=== PATIENT | male | born 1970 | race Caucasian/White ===

== ENCOUNTER 2018-06-04 09:23 | Emergency (ER) | payer BC ==
[2018-06-04 09:31] VITALS: BP 139/89
--- NOTE | 2018-06-04 10:10 | UC ---
Skin Complaint HPI - HPI Summary HPI Summary: 48 y/o male presents to the urgent care c/o a rash in his Rt forearm s/p probably a spider bite or insect bite since night 06/02/2018. Pt states last night it was very swollen that he called 911 and they advised him to come today to the urgent care. Pt reports had back surgery on Wednesday05/31/2018 for a herniated disc and he took Flexeril PO and made him feel very drowsy and dizzy. Pt states pain is dull 2/10. Area is warm to touch. Pt denies fever, but he feels hot at times. Pt denies SOB, difficulty breathing, throat tightening, chest pain, abdominal pain, N/V/D. - History of Current Complaint Chief Complaint: UCSkin Time Seen by Provider: 06/04/18 10:08 Stated Complaint: BUG BITE Hx Obtained From: Patient Pain Intensity: 2 - Allergy/Home Medications Allergies/Adverse Reactions: Allergies Allergy/AdvReac Type Severity Reaction Status Date / Time No Known Allergies Allergy Verified 06/04/18 09:31 Home Medications: Home Medications Hydrocodone/Acetaminophen [Hydrocodone-Acetamin 5-325 mg] 1 tab PO Q6HR PRN [History Confirmed 06/04/18] PMH/Surg Hx/FS Hx/Imm Hx - Surgical History Surgical History: Yes Surgery Procedure, Year, and Place: back surgery fatty tumor removed and hernai - Social History Alcohol Use: Rare Substance Use Type: None Smoking Status (MU): Never Smoked Tobacco Physical Exam - Summary Physical Exam Summary: Vital Signs Reviewed: Yes General: well developed, well nourished male sitting in the examining table w/o any apparent distress. Eyes: Positive: Conjunctiva Clear - PERRLA, EOMI ENT: Positive: Normal ENT inspection, Hearing grossly normal, Pharynx normal, TMs normal Neck: Positive: Supple, Nontender, No Lymphadenopathy Respiratory: Positive: Chest nontender, Lungs clear, Normal breath sounds Cardiovascular: Positive: RRR, No Murmur, Pulses Normal Abdomen Description: Positive: Nontender, No Organomegaly, Soft. Negative: CVA Tenderness (R), CVA Tenderness (L) Bowel Sounds: Positive: Present Musculoskeletal: Positive: Strength Intact, ROM Intact, No Edema Neurological Exam: Normal Psychological Exam: Normal Skin: Positive: rashes - RT ventral side of Rt forearm w/ erythematous patch w/ indistinct borders, warm to touch, swelling and tender to palpation. Triage Information Reviewed: Yes Vital Signs: Initial Vital Signs Temp 98 F 06/04/18 09:27 Pulse 96 06/04/18 09:27 Resp 16 06/04/18 09:27 BP 139/89 06/04/18 09:27 Pulse Ox 100 06/04/18 09:27 Course/Dx - Course Course Of Treatment: 48 y/o male presents to the urgent care c/o a rash in his Rt forearm s/p probably a spider bite or insect bite since night 2017. Pt states last night it was very swollen that he called 911 and they advised him to come today to the urgent care. Pt reports had back surgery on Wednesday05/31/2018 for a herniated disc and he took Flexeril PO and made him feel very drowsy and dizzy. Pt states pain is dull 2/10. Area is warm to touch. Pt denies fever, but he feels hot at times. Pt denies SOB, difficulty breathing , throat tightening, chest pain, abdominal pain, N/V/D. Hx obtained. - Differential Diagnoses - Skin Complaint Differential Diagnoses: Abscess, Cellulitis, Contact Dermatitis, Local Allergic Reaction, MRSA, Tick Born Illness, Other - insect or spider bite - Diagnoses Provider Diagnoses: 1- RT forearm cellulitis s/p insect bite Discharge - Sign-Out/Discharge Documenting (check all that apply): Patient Departure - D/c home All imaging exams completed and their final reports reviewed: No Studies - Discharge Plan Condition: Stable Disposition: HOME Prescriptions: Bacitracin OINTMENT* 1 applic TOPICAL BID #1 tube Cephalexin CAP* [Keflex CAP*] 500 mg PO QID #28 cap diPHENhydraMINE PO* [Benadryl PO 25 MG TAB*] 25 mg PO TID PRN #20 tab PRN Reason: pruritus Patient Education Materials: Cellulitis (ED) Referrals: Jamel Franz MD [Primary Care Provider] - 3 Days Additional Instructions: 1-Please take full course of Antibiotic. Please apply Bacitracin oint as directed. 2- If redness and swelling doubles in size beyond what was demarcated after 48 hrs of taking antibiotic and fever develops please go to the ER immediately. 3- Please Stop taking Flexeril PO since it makes you too drowsy. Please take Benadryl PO as directed to alleviate itchiness. 3-Avoid flexing your Rt arm too much , keep area clean and dry. 4-Please F/u with your PCP in 3 days for further evaluation and treatment. - Billing Disposition and Condition Condition: STABLE Disposition: Home
== END 2018-06-04 10:48 | disposition home or self-care (01) ==
LOC: UCEAST 09:23
DX: L03.113 Cellulitis of right upper limb (principal); S50.861A Insect bite (nonvenomous) of right forearm, initial encounter; W57.XXXA Bitten or stung by nonvenomous insect and other nonvenomous arthropods, initial encounter; Y92.9 Unspecified place or not applicable
CPT/HCPCS: 99212; G0463